=== PATIENT | female | born 2000 | race Caucasian/White ===

== ENCOUNTER 2022-05-19 12:47 | Emergency (ER) | payer OTHER, SELFPAY ==
[2022-05-19 13:08] VITALS: BP 134/92; PULSE 87; RESP 20; TEMP 36.6; O2SAT 99
--- NOTE | 2022-05-19 16:41 | ED.EPISTAXIS ---
HPI - Epistaxis General Chief complaint: Nasal Problem Stated complaint: Nose bleed won't stop x14 day post sinus infection Time Seen by Provider: 05/19/22 16:27 Source: patient Mode of arrival: Ambulatory History of Present Illness HPI Narrative: This is a 21-year-old female who presents to the emergency department with three weeks of sinus pressure, sinus drainage, daily epistaxis, congestion and feeling poorly with a headache. [place], she is a full-time student, and she was not able to get antibiotics last week when she had significant sinus pain and drainage. Now she has had epistaxis for period of time each day. Patient states that it started bleeding this morning, she still felt like there was an infection in her sinuses so she came in for evaluation. She has tenderness to any face pressure or tapping. Related Data Previous Rx's Medication Instructions Recorded amoxicillin 875 mg-potassium 1 tab PO BID sinusitis 1 week #14 05/19/22 clavulanate 125 mg tablet tabs fluticasone propionate 50 1 spray intranasal BID sinusitis 1 05/19/22 mcg/actuation nasal week #16 grams spray,suspension Review of Systems Review of Systems Narrative: General: denies fever, chills Head/Neck: denies headache, neck pain, endorses frontal tenderness and maxillary sinus tenderness, congestion, copious nasal drainage with epistaxis Eyes: denies visual changes, eye pain Cardio: denies chest pain, palpitations Respiratory: denies shortness of breath, cough GI: denies abdominal pain, nausea, vomiting, or diarrhea : denies dysuria, hematuria or flank pain MSK: denies new joint pain, muscle weakness or swelling Skin: denies rash, itching or wound Neuro: denies numbness, tingling, dizziness Exam Narrative Exam Narrative: Independently reviewed vitals signs and nursing notes. General: cooperative, comfortable, in no acute distress, well groomed Head: atraumatic, symmetrical facial expressions Neck: supple Eyes: equal round and reactive, EOMI, conjunctiva normal Nose: nares patent, copious nasal drainage which is thick, greenish white, old blood visible, clots cleared and no new bleeding at this time. Tenderness over maxillary sinuses bilaterally Mouth/Throat: moist mucus membranes Cardiovascular: regular rate and rhythm, no peripheral edema, warm extremities Respiratory: normal effort, able to speak in complete sentences, no audible wheezing, stridor, or rales. No retractions or tachypnea. GI: abdomen soft, nontender to palpation, nondistended, no masses, no exquisite tenderness with exam, without guarding or rebound. MSK: moves all extremities, neurovascularly intact, no weakness, normal tone Skin: brisk capillary refill, no rash, no erythema Neuro: normal speech and cognition, A&O x3 Psych: mental status is grossly normal, congruent mood, normal affect, pleasant and cooperative Initial Vital Signs Initial Vital Signs: Vital Signs Temperature 97.9 F 05/19/22 13:08 Pulse Rate 87 05/19/22 13:08 Respiratory Rate 20 05/19/22 13:08 Blood Pressure 134/92 H 05/19/22 13:08 Pulse Oximetry 99 05/19/22 13:08 Oxygen Delivery Method 05/19/22 13:08 Course Orders Ordered: Discontinued Medications Amoxicillin/Clavulanate Potassium (Amoxicillin/Clav 875/125 Mg) 1 tab PO NOW ONE Stop: 05/19/22 16:35 Last Admin: 05/19/22 16:49 Dose: 1 tab Documented By: NATALIE Ibuprofen (Ibuprofen 400 Mg Tablet) 600 mg PO NOW ONE Stop: 05/19/22 16:35 Last Admin: 05/19/22 16:49 Dose: 600 mg Documented By: NATALIE Oxymetazoline HCl (Oxymetazoline Nasal [place] 15 Ml) 2 sprays NASAL NOW ONE Stop: 05/19/22 16:35 Last Admin: 05/19/22 16:50 Dose: 2 sprays Documented By: NATALIE Vital Signs Vital signs: Vital Signs - 8 hr 05/19/22 13:08 Temperature 97.9 F Pulse Rate 87 Respiratory Rate 20 Blood Pressure 134/92 H Pulse Oximetry 99 Oxygen Delivery Method Room Air MDM - Epistaxis MDM Narrative Medical decision making narrative: Presentation suggestive of bacterial sinusitis given history/exam without evidence of facial swelling, neurologic symptoms, or ascending infection. - Augmentin prescribed today; please complete the entire course of medication. #331 & 332: Antibiotic use with Sinusitis *if the second, third, or fourth prompt is selected, only then should the clinician see the sub-prompts addressing amoxicillin [] The patient has sinusitis and antibiotics are not indicated/not prescribed at this time. [SATISFIES MIPS PERFORMANCE] [x] The patient has sinusitis with symptom onset greater than 10 days ago and the patient was prescribed antibiotics. [SATISFIES MIPS PERFORMANCE] [xx] Patient was prescribed an amoxicillin-based antibiotic. Discussed supportive half-way, patient symptom onset was three weeks ago, [place] and [place] to get antibiotics at that time currently still has symptoms which are making her feel ill. She is afebrile today however she feels fatigued, has a muffled voice due to her congestion, sinus tenderness on exam with green nasal discharge and occasional epistaxis. Patient given strict return precautions. She was prescribed seven days of Augmentin, fluticasone b.i.d. and sent home with Afrin if she has another episode of epistaxis. - Discussed supportive treatments to include decongestants, antihistamines, nasal saline rinses can be used for symptomatic relief. Tylenol/Motrin can be used for fever/pain control. Maintain adequate fluid intake. - Follow-up with PCP as directed. Return to clinic/ER instructions discussed for new, not improving, or worsening symptoms. All questions answered. Discharge Plan Departure Patient Disposition: Home Clinical Impression: Epistaxis Sinusitis Qualifiers: Sinusitis location: maxillary Chronicity: acute Recurrence: non-recurrent Qualified Code(s): J01.00 - Acute maxillary sinusitis, unspecified Instructions: Sinusitis, DI for Nosebleed Activity Restrictions/Additional Instructions: *You have been diagnosed with acute signs (a sinus infection). Please use fluticasone/Flonase morning and night for the next 1-2 weeks every day, you may use saline nasal spray throughout the day if your nose feels dry or if you have bleeding. You may take Claritin or Zyrtec at night if you are having lots of nasal drainage and this may help dry it up. Please take the antibiotic twice a day for the next seven days with food and water. You may use Afrin if you have bleeding in your nares, put a clamp on, let it sit for approximately 15 minutes, and the bleeding should stop at this point for you to take the clamp off. Please call the number listed below if you need to establish care with a primary care provider here. Stay hydrated, take ibuprofen and/or Tylenol as needed for your pain and/or fever. I hope you start feeling better soon, please return for any worsening of your symptoms. *What to do: *Please continue to take your regular medications as directed. [x ] New medication prescriptions sent to your pharmacy: [ [facility]] [ ] New medication written as a paper prescription [ ] No new medications given *Please follow up with your primary care provider in 2-3 days, call for an appointment. Let them know you were seen in the Emergency Department and that we asked that you be seen for follow-up. We will electronically transmit a record of today's note if your PCP is in our system *If you do not have a primary care provider please contact [phone] to establish care with one of the [facility] primary care providers. *Return to Emergency Department if you should have any new, worsening or concerning symptoms, such as [fever greater than 101F, chills, worsening pain, persistent vomiting or other bothersome symptoms] Prescriptions: New amoxicillin-pot clavulanate 875-125 mg tablet 1 tab PO BID 7 Days Qty: 14 0RF fluticasone propionate 50 mcg/actuation spray,suspension 1 spray intranasal BID 7 Days Qty: 16 0RF Rx Instructions: administer into each nostril Visit Report Forms: Patient Portal/API
[2022-05-19] MEDS: AMOXICILLIN/CLAV 875/125 MG 1 TAB PO (16:49)
[2022-05-19] MEDS: IBUPROFEN 400 MG TABLET 600 MG PO (16:49)
[2022-05-19] MEDS: OXYMETAZOLINE NASAL SPRAY 15 ML 2 SPRAYS NASAL (16:50)
== END 2022-05-19 17:03 | disposition home or self-care (01) ==
PROVIDERS: Emergency Provider Nurse Practitioner Critical Care Medicine
DX: R04.0 Epistaxis (principal); J01.00 Acute maxillary sinusitis, unspecified
CPT/HCPCS: 99283; A9270